=== PATIENT | male | born 1955 ===

== ENCOUNTER 2016-11-18 12:12 | Emergency (ER) | payer MEDICAID ==
--- NOTE | ~2016-11-18 | ER ---
ADMIT: 11/18/2016 RM/LOC: ER [facility] MR#: [id number] [id number] [place], [place] [id number] SHAHRZAD HOLMAN [address] [place] [address] Emergency Room Report SEX: M AGE: 61 : 1955 DATE: 11/18/2016 ADDENDUM: This patient comes to the ER because he was in [facility], and while in [facility], they took his blood and told him that his potassium was low. They have recommended that he stay in the hospital a few days. However, he did not want to miss his flight to the [facility], so he checked out, got on the airplane here yesterday and then checked into the ER today. He has a little bit of blurred vision and lightheadedness and dizziness and headache, but those are normal for him, and he has had a history of having a low potassiums, and he states doctors are unsure why. He did have a history of head trauma a year ago. PHYSICAL EXAMINATION: GENERAL: This is an alert, 61-year-old, male. VITAL SIGNS: Normal. NEURO: He is alert and answers questions appropriately. His sodium was 126, glucose 224, and creatinine was 1.4. IV of normal saline was started. He was given a liter of bolus. DIAGNOSIS: Hyponatremia. I did consult with Dr. Jeronimo concerning treatment of this patient. I then spoke with Dr. Murray, who is on-call for Dr. Loya. Dr. Murray had me order a serum osmolality and urine osmolality. The patient is to follow up with his primary tomorrow. Please see my T-sheet. [address] / Sanchez Jeronimo MD / newl JOB #: [id number] CC: Sanchez Jeronimo MD, Attending Physician Raman Loya MD, Family Physician
[~2016-11-18 12:12] MED LIST: ASA CHILDREN'S81 MG PO; AVAPRO300 MG PO; CATAPRES-DPS0.2 MG PO; CATAPRES-T0.2 MG/24 TP; GLUCOPHAGE XR500 MG PO; JANUVIA100 MG PO; LANTUS100 UNITS/ SQ; METOPROLOL TART25 MG PO; MIRALAX PACKET17 GM PO; NORVASC DPS10 MG PO; SOD BICARB TAB650 MG PO; SODIUM CHLORIDE PO; ULTRAM DPS50 MG PO; ZEBETA5 MG PO
== END 2016-11-18 15:50 | disposition home or self-care (01) ==
LOC: ER 12:12
DX: E87.1 Hypo-osmolality and hyponatremia (principal); I10 Essential (primary) hypertension; E11.9 Type 2 diabetes mellitus without complications